=== PATIENT | male | born 1970 | race Caucasian/White ===

== ENCOUNTER → 2022-03-13 09:30 | Outpatient (CLI) | payer BC, SELFPAY ==
[2022-03-14 18:36] LABS: Alanine Aminotransferase 34 U/L (12-78); Albumin Level 4.3 g/dl (3.5-5.0); Albumin/Globulin Ratio 1.4 (1.1-1.8); Alkaline Phosphatase 111 U/L (38-126); Anion Gap 14.4 mEq/L (5-15); Aspartate Amino Transferase 35 U/L (17-59); Bilirubin,Total 0.6 mg/dl (0.2-1.3); Blood Urea Nitrogen 18 mg/dl (9-20); Calcium 9.3 mg/dl (8.4-10.2); Carbon Dioxide 26 mmol/L (22.0-30.0); Chloride 104 mmol/L (98-107); Chol/HDL Ratio 4.1 (1-3.5); Cholesterol 130 mg/dl (140-200); Estimated Glomerular Filt Rate 88 ml/min (>60); GFR (African American) 107 ML/MIN (>60); Glucose 130 mg/dl (74-100); HDL Cholesterol 32 mg/dl (40-60); Potassium 4.4 mmoL/L (3.5-5.1); Sodium 140 mmol/L (136-145); Total Protein,Serum 7.3 g/dl (6.3-8.2); Triglycerides 103 mg/dl (30-150); VLDL Cholesterol 21 mg/dL (0-40)
[2022-03-14 18:39] LABS: Basophils # 0.1 K/mm3 (0-0.2); Basophils % 1.3 % (0.1-2.0); Eosinophils % 10.4 % (0.1-12.0); Hematocrit 44.6 % (42.0-52.0); Hemoglobin 15.1 g/dL (14.1-18.0); Lymphocytes # 2.1 K/mm3 (0.7-4.5); Lymphocytes % 21.6 % (10-50); Mean Corpuscular HGB Conc 33.9 g/dL (31.8-35.4); Mean Corpuscular Hemoglobin 30.5 pg (27.0-31.2); Mean Corpuscular Volume 89.8 fl (80-94); Monocytes # 0.6 K/mm3 (0.1-1.0); Monocytes % 5.9 % (1.7-9.3); Neutrophils % 60.8 % (37.0-80.0); Platelet Count 322 K/mm3 (142-424); Red Blood Count 4.96 M/mm3 (4.60-6.20); Red Cell Distribution Width 13.6 % (11.5-17.5); White Blood Count 9.9 K/mm3 (4.8-10.8)
[2022-03-14 18:54] LABS: Direct LDL Cholesterol 75.37 mg/dL (100-129)
[2022-03-14 19:17] LABS: Prostate Specific Ag Screen 0.9 ng/ml (0.0-4.0); Thyroid Stimulating Hormone 1.91 uIU/mL (0.465-4.68)
[2022-03-14 19:20] LABS: Hemoglobin A1C 5.3 % (4.0-6.0)
[2022-03-21 23:08] LABS: Testosterone, Total, LC/MS 233 ng/dL (.)
== END ==
PROVIDERS: PCP Nurse Practitioner Family; Visit Provider Nurse Practitioner Family
DX: R53.83 Other fatigue (principal); I10 Essential (primary) hypertension; Z12.5 Encounter for screening for malignant neoplasm of prostate
CPT/HCPCS: 80053; 80061; 83036; 84403; 84443; 85025; G0103

== ENCOUNTER → 2022-03-21 14:04 | Outpatient (CLI) | payer BC, SELFPAY | PROVIDERS: PCP Nurse Practitioner Family; Visit Provider Nurse Practitioner Family | DX: R06.02 Shortness of breath (principal); I10 Essential (primary) hypertension | CPT/HCPCS: 93306 ==

== ENCOUNTER → 2022-03-28 11:09 | Outpatient (CLI) | payer BC, SELFPAY ==
[2022-04-02 18:09] LABS: Testosterone, Total, LC/MS 208.4 ng/dL (264.0-916.0); Testosterone,Free 2.8 pg/mL (7.2-24.0)
== END ==
PROVIDERS: PCP Nurse Practitioner Family; Visit Provider Nurse Practitioner Family
DX: R06.02 Shortness of breath (principal); I10 Essential (primary) hypertension; R53.83 Other fatigue; E29.1 Testicular hypofunction; Z12.5 Encounter for screening for malignant neoplasm of prostate
CPT/HCPCS: 36415; 84402; 84403

== ENCOUNTER → 2022-04-09 16:15 | Outpatient (CLI) | payer BC, SELFPAY ==
[2022-04-17 10:13] LABS: Testosterone, Total, LC/MS 123.6 ng/dL (264.0-916.0); Testosterone,Free 2.9 pg/mL (7.2-24.0)
== END ==
PROVIDERS: PCP Nurse Practitioner Family; Visit Provider Nurse Practitioner Family
DX: R79.89 Other specified abnormal findings of blood chemistry (principal)
CPT/HCPCS: 84402; 84403

== ENCOUNTER → 2022-04-30 07:06 | Outpatient (CLI) | payer BC, SELFPAY ==
--- NOTE | 2022-04-30 07:07 | CA_ITS ---
FINAL REPORT TECHNIQUE: Grayscale, color Doppler and duplex Doppler ultrasound of the kidneys, aorta and renal arteries was performed. Multiple velocities were measured. CLINICAL HISTORY: HTN FINDINGS: Aorta velocity: 83.8 cm/sec Right kidney: 10.7 cm. No evidence of hydronephrosis or mass. Right intrarenal RI: 0.53 Right renal artery velocity: 201 cm/sec. Right RAR (Renal artery-Aortic Ratio): 2.4 Left Kidney: 12.3 cm. No evidence of hydronephrosis or mass. Left intrarenal RI: 0.51 Left renal artery velocity: 104 cm/sec. Left RAR (Renal Artery-Aortic Ratio): 1.24 IMPRESSION: No evidence of significant left renal artery stenosis. Less than 60% right renal artery stenosis. CT angiogram or postcontrast MR angiogram would be more sensitive for evaluation of possible renal artery stenosis. Reviewed, Interpreted and Dictated by Caleb Mcghee MD Transcribed by Kalina Vaca Authenticated and [facility]
--- NOTE | 2022-04-30 07:07 | US_ITS ---
FINAL REPORT TECHNIQUE: Ultrasound imaging of the abdomen was obtained. CLINICAL HISTORY: E78.5 - Hyperlipidemia, unspecified FINDINGS: The spleen measures 13 cm. Liver is within normal limits. The right kidney measures 11.3 cm. Left kidney measures 11 cm. There is no free fluid. IMPRESSION: Unremarkable exam. Reviewed, Interpreted and Dictated by Caleb Mcghee MD Transcribed by Camille Ling Authenticated and . [facility]
[2022-04-30 10:09] LABS: Chloride 103 mmol/L (98-107); Potassium 4.2 mmoL/L (3.5-5.1); Sodium 141 mmol/L (136-145)
[2022-04-30 10:12] LABS: Anion Gap 12.2 mEq/L (5-15); Blood Urea Nitrogen 20 mg/dl (9-20); Calcium 9.9 mg/dl (8.4-10.2); Carbon Dioxide 30 mmol/L (22.0-30.0); Estimated Glomerular Filt Rate 63 ml/min (>60); GFR (African American) 77 ML/MIN (>60); Glucose 140 mg/dl (74-100)
== END ==
PROVIDERS: PCP Nurse Practitioner Family; Visit Provider Physician Assistant
DX: I10 Essential (primary) hypertension (principal); E78.5 Hyperlipidemia, unspecified; R94.31 Abnormal electrocardiogram [ECG] [EKG]
CPT/HCPCS: 36415; 76770; 80048; 93976

== ENCOUNTER → 2022-07-13 14:24 | Outpatient (CLI) | payer BC, SELFPAY | PROVIDERS: PCP Nurse Practitioner Family; Visit Provider Nurse Practitioner Family | DX: N39.0 Urinary tract infection, site not specified (principal) | CPT/HCPCS: 87086 ==

== ENCOUNTER → 2022-09-07 14:02 | Outpatient (CLI) | payer BC, SELFPAY ==
[2022-09-15 18:09] LABS: Testosterone, Total, LC/MS 259 ng/dL (.)
== END ==
LOC: LAB.DROPOF 14:02
PROVIDERS: PCP Nurse Practitioner Family; Visit Provider Nurse Practitioner Family
DX: E29.1 Testicular hypofunction (principal)
CPT/HCPCS: 84403

== ENCOUNTER → 2023-03-27 06:45 | Outpatient (CLI) | payer BC, SELFPAY ==
[2023-03-27 18:21] LABS: Basophils # 0.1 K/mm3 (0-0.2); Basophils % 0.5 % (0.1-2.0); Eosinophils # 0.6 K/mm3 (0.0-0.4); Eosinophils % 6.3 % (0.1-12.0); Hematocrit 38.3 % (42.0-52.0); Hemoglobin 12.7 g/dL (14.1-18.0); Lymphocytes # 2.3 K/mm3 (0.7-4.5); Mean Corpuscular HGB Conc 33.2 g/dL (31.8-35.4); Mean Corpuscular Hemoglobin 26.5 pg (27.0-31.2); Mean Platelet Volume 9.4 fl (7.4-10.4); Monocytes # 0.7 K/mm3 (0.1-1.0); Monocytes % 7.5 % (1.7-9.3); Neutrophils # 5.9 K/mm3 (1.8-7.8); Neutrophils % 61.8 % (37.0-80.0); Platelet Count 281 K/mm3 (142-424); Red Blood Count 4.79 M/mm3 (4.60-6.20); Red Cell Distribution Width 16.2 % (11.5-17.5); White Blood Count 9.5 K/mm3 (4.8-10.8)
[2023-03-27 22:50] LABS: Alanine Aminotransferase 35 U/L (12-78); Albumin Level 4.1 g/dl (3.5-5.0); Albumin/Globulin Ratio 1.3 (1.1-1.8); Alkaline Phosphatase 82 U/L (38-126); Anion Gap 15.8 mEq/L (5-15); Aspartate Amino Transferase 37 U/L (17-59); Bilirubin,Total 0.2 mg/dl (0.2-1.3); Blood Urea Nitrogen 18 mg/dl (9-20); Calcium 9.2 mg/dl (8.4-10.2); Carbon Dioxide 22 mmol/L (22.0-30.0); Chloride 104 mmol/L (98-107); Chol/HDL Ratio 3.7 (1-3.5); Cholesterol 112 mg/dl (140-200); Estimated Glomerular Filt Rate 63 ml/min (>60); GFR (African American) 76 ML/MIN (>60); Globulin 3.1 g/dL (1.3-3.2); Glucose 136 mg/dl (74-100); HDL Cholesterol 30 mg/dl (40-60); Potassium 3.8 mmoL/L (3.5-5.1); Sodium 138 mmol/L (136-145); Total Protein,Serum 7.2 g/dl (6.3-8.2); Triglycerides 164 mg/dl (30-150); VLDL Cholesterol 33 mg/dL (0-40)
[2023-03-27 23:01] LABS: Direct LDL Cholesterol 62.54 mg/dL (100-129)
[2023-03-27 23:20] LABS: Prostate Specific Ag Screen 1.7 ng/ml (0.0-4.0); Thyroid Stimulating Hormone 1.36 uIU/mL (0.465-4.68)
[2023-03-29 10:39] LABS: Testosterone,Total 937 ng/dL (264-916)
== END ==
LOC: LAB.DROPOF 03-28 06:46
PROVIDERS: PCP Nurse Practitioner Family; Visit Provider Nurse Practitioner Family
DX: I10 Essential (primary) hypertension (principal)
CPT/HCPCS: 80053; 80061; 84403; 84443; 85025; G0103